=== PATIENT | male | born 1940 | race Caucasian/White ===

== ENCOUNTER → 2020-09-12 | Day surgery (SDC) | payer OTHER ==
[~2020-09-12] VITALS: Ht 175.3 cm; Wt 81.6 kg
[~2020-09-12] MED LIST: ALLOPURINOL 10100 M1 PO; ANORO ELLIPTA1 EACH INH; ANTIVERT25 MG PO; BENAZEPRIL 10 M10 MG PO; CENTRUM SILVER1 EAC7 PO; DESYREL150 MG PO; DIAZEPAM 5 MG5 M1 PO; EZETIMIBE10 MG PO; FLOMAX0.4 MG PO; KEFLEX500 M1 PO; LEXAPRO 10 MG T10 M2 PO; PROAIR HFA8.5 GM INH; ROSUVASTATIN CA20 MG PO; TADALAFIL5 M1 PO; TOPROL XL100 MG PO; ZYLOPRIM300 MG PO
[2020-09-12 08:47] VITALS: BP 155/65
--- NOTE | 2020-09-16 06:05 | O ---
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 PROCEDURES: Right upper lid resection with myocutaneous flap repair of defect, correction of right upper lid entropion by advancement flap. SURGEON: Bobby Webb MD. OCEANOGRAPHER ASSISTANT: None. ANESTHESIOLOGIST: GUANACO. COMPLICATIONS: None. 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 His lid is incredibly distensible and his lashes chronically scrub his cornea. He presents today for a right upper lid tightening procedure and a separate eversion procedure to roll the remaining lid away from his eyeball. Informed consent was obtained to include but not limited to the potential risk for loss of vision, bleeding, infection, failure to improve the problem the potential need for further surgery or treatment. DESCRIPTION OF PROCEDURE: The patient was taken to the operating room where 2% Xylocaine with epinephrine mixed with equal parts of 0.75% Marcaine with Wydase was administered transcutaneously and transconjunctivally to the right upper lid, the right infratemporal fossa, the right brow, the right medial canthus, right lateral canthus and the lateral right lower lid. The patient was subsequently prepped and draped in the usual sterile fashion. A fine tip skin marking pen was then used to outline the amount of redundant upper lid tissue that could be excised, expecting to be able to correct that with a flap from the infratemporal fossa. The amount of tissue that was redundant was considerable and over 3 cm. The incisions were then made perpendicularly across the eyelid margin and drawn to a point at the arcus marginalis. Hemostasis was achieved in [address] [address] OPERATIVE REPORT Name: ROXANNELUTHER Room #: REG [facility] Rei.Dede.#: [id number] Admission: 09/12/20 Attend Phys: Bobby Webb MD Discharge: Date of : 42 Report #: [id number] the field with diligent pinpoint monopolar cautery. An en glove dissection was then accomplished in the medial remaining right upper lid to advance the right anterior lamella on the posterior lamella. Hemostasis was then re-achieved. That flap was then advanced superiorly and secured with multiple interrupted mattress 5-0 chromic sutures. This everted the residual lid well. A myocutaneous flap was then developed laterally to correct the defect in the right upper lid. Hemostasis was then re-achieved. This flap was based on the periosteum of the lateral orbit. The flap was then advanced and secured with multiple interrupted 5-0 Vicryl sutures deep. The eyelid margin itself was reapproximated with interrupted 7-0 Vicryl sutures. The subcutaneous structures and the skin were superficially were closed with buried Vicryl sutures followed by a final closure of 6-0 plain. The wound was then cleaned and dressed with erythromycin ophthalmic ointment and the patient subsequently transported to the recovery area, having tolerated the procedures well with no anesthetic or operative complications being noted. MD VARGHESE KasperW/LORNE/POOJA <ELECTRONICALLY SIGNED> By: Bobby Webb MD 09/16/20 [id number] Bobby Webb MD /nt
== END | disposition home or self-care (01) ==
LOC: EDSEX → OR 07:15
PROVIDERS: ATTEND Ophthalmology
DX: H02.001 Unspecified entropion of right upper eyelid (principal); H18.9 Unspecified disorder of cornea; H04.201 Unspecified epiphora, right side; H10.89 Other conjunctivitis; G47.33 Obstructive sleep apnea (adult) (pediatric); Z98.890 Other specified postprocedural states; Z79.899 Other long term (current) drug therapy; Z20.822 Contact with and (suspected) exposure to COVID-19; Z88.8 Allergy status to other drugs, medicaments and biological substances
CPT/HCPCS: 50010; 50101; 50386; 50398; 51636; 56527; 56528; 56531; 62110; 62850; 70005

== ENCOUNTER → 2021-04-10 | Day surgery (SDC) | payer OTHER ==
[~2021-04-10] VITALS: Ht 177.8 cm; Wt 82.6 kg
[~2021-04-10] MED LIST changes: +ALLOPURINOL 30300 M1 PO; -ANTIVERT25 MG PO; +LEXAPRO20 MG PO; +MOTION SICKNESS25 M1 PO; -ZYLOPRIM300 MG PO
--- NOTE | ~2021-04-10 | O ---
[facility] [place] [address] OPERATIVE REPORT Name: LUTHER OLIVEIRA Room #: REG [facility].#: [id number] Admission: 04/10/21 Attend Phys: Bobby Webb MD Discharge: Date of : 42 Report #: [id number] THIS REPORT FOR: cc: Pascual Pelaez MD,Pascual Webb,Bobby Garcia MD ~ cc: Sav Smith MD, Pascual Pelaez MD DATE OF SERVICE: 04/10/2021 SITE DAMAGE PREVENTION TECHNICIAN: None. PREOPERATIVE DIAGNOSIS: Unilateral right lower lid entropion. POSTOPERATIVE DIAGNOSIS: Unilateral right lower lid entropion. OPERATION PERFORMED: Unilateral right lower lid entropion repair. ANESTHESIA: Local with IV sedation. COMPLICATIONS: None. INDICATIONS FOR PROCEDURE: This patient has unilateral lower lid entropion with chronic irritation and discharge. The current procedure is being undertaken in order to improve the patient's level of comfort and visual function. Informed consent was obtained to include but not limited to the loss of vision, bleeding, infection, scarring, failure to improve the problem and need for further surgery. DESCRIPTION OF OPERATION: The patient was taken to the operating room, where 2% Xylocaine with epinephrine mixed with equal parts of 0.75% Marcaine with Wydase was administered transcutaneously and transconjunctivally to the lower lid and lateral canthal area. The patient was then prepped and draped in the usual sterile fashion. A Zane clamp was used to clamp the lateral canthus, following which a sharp canthotomy and cantholysis were performed. Hemostasis was achieved with a monopolar cautery, as it was throughout the case. A tarsal strip was prepared laterally, removing the lash-bearing portion of the redundant lid margin and the redundant tarsal plate. A transconjunctival dissection was then undertaken just inferior to the lower border of the tarsal plate. The lower lid retractors were disinserted from the inferior border of the tarsal plate. The lower lid retractors were then advanced and reattached to the anterior surface of the tarsal plate with mattress 5-0 chromic sutures passed transconjunctivally and secured in the infraciliary margin. The tarsal strip was then secured laterally with 2 interrupted 5-0 Prolene sutures. The subcutaneous structures and the skin were then closed with multiple interrupted [address] [address] OPERATIVE REPORT Name: ROXANNELUTHER Room #: REG [facility]..#: [id number] Admission: 04/10/21 Attend Phys: Bobby Webb MD Discharge: Date of : 42 Report #: [id number] 6-0 plain gut sutures so the lateral canthal angle was sharply reformed. The wound was then cleaned and dressed with ophthalmic antibiotic ointment. The patient was then transported to the recovery area having tolerated the procedure well with no anesthetic or operative complications being noted. By: [id number] MD neeraj Kasper
[2021-04-10 09:30] VITALS: BP 154/65
== END | disposition home or self-care (01) ==
LOC: OR 07:24
PROVIDERS: ATTEND Ophthalmology
DX: H02.002 Unspecified entropion of right lower eyelid (principal); I10 Essential (primary) hypertension; E78.00 Pure hypercholesterolemia, unspecified; F41.9 Anxiety disorder, unspecified; J43.9 Emphysema, unspecified; M10.9 Gout, unspecified; N40.0 Benign prostatic hyperplasia without lower urinary tract symptoms; Z98.890 Other specified postprocedural states; Z79.899 Other long term (current) drug therapy; Z20.822 Contact with and (suspected) exposure to COVID-19; Z95.1 Presence of aortocoronary bypass graft; Z87.891 Personal history of nicotine dependence; Z85.828 Personal history of other malignant neoplasm of skin; Z87.442 Personal history of urinary calculi; Z88.8 Allergy status to other drugs, medicaments and biological substances
CPT/HCPCS: 50010; 50101; 50386; 50398; 51636; 56527; 56531; 62110; 62850; 70005